=== PATIENT | male | born 1980 | race Caucasian/White ===

== ENCOUNTER 2024-09-27 15:48 | Inpatient (IN) | payer OTHER ==
[~2024-09-27] VITALS: Ht 175.3 cm; Wt 99.8 kg
[2024-09-27] MEDS ORDERED: LOPERAMIDE HCL 2MG CAPSULE PO ONE (16:30)
[2024-09-27 16:40] LABS: BASOPHILS % 0.1 % (0.0-2.0); EOSINOPHILS % 0.1 % (0.0-5.0); HEMOGLOBIN. 14.3 g/dL (14.0-18.0); LYMPHOCYTES % 10.3 % (20.0-50.0); MEAN CORPUSCULAR HEMOGLOBIN 29.4 pg (28.0-32.0); MEAN CORPUSCULAR HGB CONC 33.3 g/dL (31.0-37.0); MEAN CORPUSCULAR VOLUME 88.2 fL (80.0-94.0); MEAN PLATELET VOLUME 9.3 fl (7.4-10.4); MONOCYTES % 6.9 % (2.0-8.0); NEUTROPHILS % 82.6 % (40.0-76.0); PLATELET 218 x1000/uL (130-400); RED BLOOD CELL COUNT 4.88 mill/uL (4.7-6.1); RED CELL DISTRIBUTION WIDTH 13.1 % (11.6-14.6); WHITE BLOOD COUNT 14.7 x1000/uL (4.5-11.0)
[2024-09-27 16:43] LABS: CHLORIDE 98 mEq/L (98-107); POTASSIUM 3.9 mEq/L (3.5-5.1); SODIUM 132 mEq/L (136-145)
[2024-09-27 16:44] LABS: CALCIUM 9.8 mg/dL (8.7-10.4); CARBON DIOXIDE 25 mEq/L (21-32)
[2024-09-27 16:46] LABS: PROTHROMBIN TIME 10.9 sec (9.6-11.0)
[2024-09-27 16:49] LABS: CREATININE 0.8 mg/dL (0.6-1.3); GLUCOSE 114 mg/dL (70-105); UREA NITROGEN BLOOD 8 mg/dL (9-23)
[2024-09-27 16:51] LABS: ALANINE AMINOTRANSFERASE 29 IU/L (10-49); ALBUMIN 4.5 g/dL (3.2-4.8); ASPARTATE AMINOTRANSFERASE 19 IU/L (<34)
[2024-09-27 16:52] LABS: BILIRUBIN DIRECT 0.6 mg/dL (<=3.0); BILIRUBIN TOTAL 1.8 mg/dL (0.1-1.0); PROTEIN TOTAL 8.2 g/dL (6.0-8.3)
[2024-09-27] MEDS: HYDROCODONE/ACETAMINOPHEN 5/325MG TABLET PO ONE (16:59)
[2024-09-27] MEDS: LOPERAMIDE HCL 2MG CAPSULE PO NR (16:59)
[2024-09-27] MEDS: CEFTRIAXONE 1GM/50ML 50 ML IV NR (18:41)
[2024-09-27] MEDS: SODIUM CHLORIDE 0.9% 1,000 ML IV ONE (19:17)
[2024-09-27] MEDS: METRONIDAZOLE 500 MG PREMIX 100 ML IV NR (20:58)
[2024-09-27 21:46] LABS: CLARITY URINE CLEAR (CLEAR); COLOR URINE DARK YELLOW (YELLOW); GLUCOSE URINE NEGATIVE (NEGATIVE); KETONES URINE 2+ (NEGATIVE); LEUKOCYTE ESTERASE URINE NEGATIVE (NEGATIVE); NITRITE URINE NEGATIVE (NEGATIVE); OCCULT BLOOD URINE NEGATIVE (NEGATIVE); PH URINE 6.5 (4.5-8.0); PROTEIN URINE NEGATIVE (NEGATIVE); SPECIFIC GRAVITY URINE 1.011 (1.005-1.030)
[2024-09-27 22:06] LABS: BACTERIA URINE NONE SEEN; RBC URINE NONE SEEN /hpf (0-2); SQUAMOUS EPITHELIAL CELL URINE RARE /lpf (RARE/1+); WBC URINE NONE SEEN /hpf (0-2)
[2024-09-27] MEDS ORDERED: DEXT 5%/LACTATED RINGERS 1,000 ML IV SCH (22:15)
[2024-09-27] MEDS ORDERED: ONDANSETRON HCL 4MG/2ML INJ IV PRN (22:15)
[2024-09-27] MEDS ORDERED: MORPHINE SULFATE 2 MG/ML INJ (NOT FOR IM USE) IV PRN (22:15)
[2024-09-27 22:29] LABS: PHOSPHORUS 3.1 mg/dL (2.5-4.9)
[2024-09-27] MEDS ORDERED: NALOXONE HCL 0.4MG/ML VIAL IV PRN (22:30)
[2024-09-27] MEDS ORDERED: DOCUSATE SODIUM 100MG CAPSULE PO PRN (22:30)
[2024-09-27] MEDS ORDERED: ACETAMINOPHEN 325MG TABLET PO PRN (22:30)
[2024-09-27] MEDS ORDERED: MAGNESIUM/ALUMINUM HYDROXIDE/SIMETHICONE 30ML UDC PO PRN (22:30)
[2024-09-27] MEDS ORDERED: CLONIDINE 0.1MG TABLET PO PRN (22:30)
[2024-09-27] MEDS ORDERED: IPRATROPIUM/ALBUTEROL 0.5-3(2.5)MG/3ML NEB HHN PRN (22:30)
[2024-09-27] MEDS ORDERED: GUAIFENESIN 200MG/10ML SUGAR FREE UDC PO PRN (22:30)
[2024-09-27] MEDS ORDERED: HYDROCODONE/ACETAMINOPHEN 5/325MG TABLET PO PRN (22:30)
[2024-09-27] MEDS ORDERED: BUPIVACAINE HCL/PF 0.5% (5MG/ML) 10ML ONE (23:18)
[2024-09-27] MEDS ORDERED: SKIN ADHESIVE 0.7 GM EA TOP ONE (23:34)
[2024-09-27] MEDS ORDERED: SUCCINYLCHOLINE CHLORIDE 200MG/10ML IV ONE (23:42)
[2024-09-27] MEDS ORDERED: HYDROMORPHONE HCL/PF 1MG/ML INJ ONE (23:42)
[2024-09-27] MEDS ORDERED: ROCURONIUM BROMIDE 10MG/ML VIAL 5ML IV ONE (23:42)
[2024-09-27] MEDS ORDERED: ETOMIDATE 2MG/ML 10ML VIAL IV ONE (23:42)
[2024-09-28] MEDS ORDERED: MORPHINE SULFATE 4 MG/ML INJ (FOR IV/IM USE) IV PRN
[2024-09-28] MEDS ORDERED: ONDANSETRON HCL 4MG/2ML INJ IV PRN
[2024-09-28] MEDS ORDERED: HYDROCODONE/ACETAMINOPHEN 5/325MG TABLET PO PRN
[2024-09-28] MEDS ORDERED: MORPHINE SULFATE 2 MG/ML INJ (NOT FOR IM USE) IV PRN
[2024-09-28] MEDS ORDERED: FENTANYL CITRATE/PF 50MCG/ML 5ML VIAL ONE (00:23)
[2024-09-28] MEDS ORDERED: ROCURONIUM BROMIDE 10MG/ML VIAL 5ML IV ONE (00:25)
[2024-09-28] MEDS ORDERED: SUGAMMADEX SODIUM 200MG/2ML VIAL IV ONE (00:56)
[2024-09-28] MEDS ORDERED: TAZOBACTAM IV SCH (02:00)
[2024-09-28] MEDS ORDERED: PIPERACILLIN IV SCH (02:00)
[2024-09-28 03:31] VITALS: BP 113/73; PULSE 86; RESP 18; TEMP 36.8
[2024-09-28] MEDS ORDERED: CEFTRIAXONE 2GM/50ML 50 ML IV SCH (06:00)
[2024-09-28] MEDS: METRONIDAZOLE 500 MG PREMIX 100 ML IV SCH (06:00)
[2024-09-28] MEDS: PIPERACILLIN/TAZO 3.375G/50ML IV SCH (06:01)
[2024-09-28] MEDS: SODIUM CHLORIDE 0.9% 3ML FLUSH IVF SCH (06:02)
[2024-09-28] MEDS: DEXT 5%/0.45% NACL KCL 20MEQ/L 1,000 ML IV SCH (06:15)
[2024-09-28 08:00] VITALS: BP 125/68; PULSE 93; RESP 19; TEMP 36.8; O2SAT 100
[2024-09-28 08:08] LABS: HEMATOCRIT. 40.9 % (42.0-52.0); HEMOGLOBIN. 13.8 g/dL (14.0-18.0); MEAN CORPUSCULAR HEMOGLOBIN 29.8 pg (28.0-32.0); MEAN CORPUSCULAR HGB CONC 33.7 g/dL (31.0-37.0); MEAN CORPUSCULAR VOLUME 88.7 fL (80.0-94.0); MEAN PLATELET VOLUME 9.4 fl (7.4-10.4); PLATELET 206 x1000/uL (130-400); RED BLOOD CELL COUNT 4.62 mill/uL (4.7-6.1); RED CELL DISTRIBUTION WIDTH 13.2 % (11.6-14.6); WHITE BLOOD COUNT 15.2 x1000/uL (4.5-11.0)
[2024-09-28 08:30] LABS: PARTIAL THROMBOPLASTIN TIME 28.6 sec (23.4-31.0); PROTHROMBIN TIME 10.8 sec (9.6-11.0)
[2024-09-28 08:36] LABS: DIFFERENTIAL COMMENT 1
[2024-09-28] MEDS: PANTOPRAZOLE SODIUM 40 MG/VIAL IV SCH (08:52)
[2024-09-28] MEDS: ENOXAPARIN 40MG/0.4ML SYR SUBCUT SCH (08:54)
[2024-09-28 09:17] LABS: CHLORIDE 102 mEq/L (98-107); POTASSIUM 4.3 mEq/L (3.5-5.1); SODIUM 135 mEq/L (136-145)
[2024-09-28 09:18] LABS: CALCIUM 9.2 mg/dL (8.7-10.4); CARBON DIOXIDE 25 mEq/L (21-32)
[2024-09-28 09:23] LABS: CREATININE 0.8 mg/dL (0.6-1.3); GLUCOSE 127 mg/dL (70-105); UREA NITROGEN BLOOD 9 mg/dL (9-23)
[2024-09-28 09:25] LABS: ALANINE AMINOTRANSFERASE 31 IU/L (10-49); ALBUMIN 4.1 g/dL (3.2-4.8); ASPARTATE AMINOTRANSFERASE 28 IU/L (<34); BILIRUBIN DIRECT 0.8 mg/dL (<=3.0); CREATINE KINASE 412 IU/L (46-171)
[2024-09-28 09:26] LABS: BILIRUBIN TOTAL 1.9 mg/dL (0.1-1.0); PROTEIN TOTAL 7.6 g/dL (6.0-8.3); THYROID STIMULATING HORMONE 1.12 uIU/mL (0.55-4.78)
[2024-09-28 12:00] VITALS: BP 125/72; PULSE 96; RESP 19; TEMP 37.2; O2SAT 98
[2024-09-28] MEDS: ACETAMINOPHEN 325MG TABLET PO PRN (13:26)
[2024-09-28 15:02] LABS: PLATELET ESTIMATE NORMAL
[2024-09-28 16:00] VITALS: BP 104/63; PULSE 86; RESP 19; TEMP 36.8; O2SAT 99
[2024-09-28 16:56] LABS: HEMATOCRIT 36.2 % (42.0-52.0); HEMOGLOBIN 12.2 g/dL (14.0-18.0)
[2024-09-28 17:12] LABS: CREATINE KINASE 368 IU/L (46-171)
[2024-09-28 20:00] VITALS: BP 111/66; PULSE 94; RESP 17; TEMP 36.5; O2SAT 96
[2024-09-28] MEDS: HYDROCODONE/ACETAMINOPHEN 5/325MG TABLET PO PRN (20:09)
[2024-09-28 22:31] VITALS: BP 111/66; PULSE 94; RESP 17; TEMP 36.5; O2SAT 96
[2024-09-29 04:00] VITALS: BP 114/70; PULSE 82; RESP 18; TEMP 36.6; O2SAT 98
[2024-09-29 07:10] LABS: BASOPHILS % 0.3 % (0.0-2.0); EOSINOPHILS % 0.5 % (0.0-5.0); HEMOGLOBIN. 12.4 g/dL (14.0-18.0); LYMPHOCYTES % 16.3 % (20.0-50.0); MEAN CORPUSCULAR HEMOGLOBIN 29.5 pg (28.0-32.0); MEAN CORPUSCULAR HGB CONC 33.5 g/dL (31.0-37.0); MEAN CORPUSCULAR VOLUME 88.2 fL (80.0-94.0); MEAN PLATELET VOLUME 9.3 fl (7.4-10.4); MONOCYTES % 7.2 % (2.0-8.0); NEUTROPHILS % 75.7 % (40.0-76.0); PLATELET 197 x1000/uL (130-400); RED CELL DISTRIBUTION WIDTH 13.3 % (11.6-14.6); WHITE BLOOD COUNT 8.2 x1000/uL (4.5-11.0)
[2024-09-29 07:19] LABS: CHLORIDE 103 mEq/L (98-107); POTASSIUM 3.9 mEq/L (3.5-5.1); SODIUM 135 mEq/L (136-145)
[2024-09-29 07:20] LABS: CALCIUM 8.9 mg/dL (8.7-10.4); CARBON DIOXIDE 25 mEq/L (21-32)
[2024-09-29 07:25] LABS: CREATININE 0.8 mg/dL (0.6-1.3); GLUCOSE 100 mg/dL (70-105); UREA NITROGEN BLOOD 8 mg/dL (9-23)
[2024-09-29 07:27] LABS: PHOSPHORUS 1.9 mg/dL (2.5-4.9)
[2024-09-29 08:00] VITALS: BP 124/78; PULSE 87; RESP 20; TEMP 36.6; O2SAT 97
[2024-09-29] MEDS: SODIUM PHOSPHATE 30 MMOL in DEXT 5% WATER 490 ML IV NR (10:34)
[2024-09-29 12:00] VITALS: BP 116/77; PULSE 81; RESP 18; TEMP 36.8; O2SAT 99
[2024-09-29 16:00] VITALS: BP 134/85; PULSE 86; RESP 20; TEMP 36.6; O2SAT 100
[2024-09-29 20:00] VITALS: BP 121/78; PULSE 89; RESP 18; TEMP 37.1; O2SAT 98
[2024-09-29 20:11] VITALS: BP 124/75; PULSE 88; RESP 16; TEMP 37.9; O2SAT 92
[2024-09-30] VITALS: BP 130/81; PULSE 80; RESP 17; TEMP 36.1; O2SAT 98
[2024-09-30 04:00] VITALS: BP 124/86; PULSE 73; RESP 18; TEMP 36.7; O2SAT 100
[2024-09-30] MEDS: PANTOPRAZOLE 40MG DR TABLET PO SCH (06:01)
[2024-09-30 08:00] VITALS: BP 117/72; PULSE 81; RESP 19; TEMP 36.6; O2SAT 95
[2024-09-30 08:21] LABS: BASOPHILS % 0.2 % (0.0-2.0); EOSINOPHILS % 1.9 % (0.0-5.0); HEMATOCRIT. 37.5 % (42.0-52.0); HEMOGLOBIN. 12.9 g/dL (14.0-18.0); LYMPHOCYTES % 13.5 % (20.0-50.0); MEAN CORPUSCULAR HEMOGLOBIN 30.2 pg (28.0-32.0); MEAN CORPUSCULAR HGB CONC 34.5 g/dL (31.0-37.0); MEAN CORPUSCULAR VOLUME 87.8 fL (80.0-94.0); MEAN PLATELET VOLUME 9.4 fl (7.4-10.4); MONOCYTES % 7.6 % (2.0-8.0); NEUTROPHILS % 76.8 % (40.0-76.0); PLATELET 220 x1000/uL (130-400); RED BLOOD CELL COUNT 4.28 mill/uL (4.7-6.1); RED CELL DISTRIBUTION WIDTH 13.1 % (11.6-14.6); WHITE BLOOD COUNT 6.8 x1000/uL (4.5-11.0)
[2024-09-30 08:41] LABS: CALCIUM 9.2 mg/dL (8.7-10.4); CHLORIDE 104 mEq/L (98-107); SODIUM 136 mEq/L (136-145)
[2024-09-30 08:42] LABS: CARBON DIOXIDE 27 mEq/L (21-32)
[2024-09-30 08:47] LABS: CREATININE 0.6 mg/dL (0.6-1.3); GLUCOSE 105 mg/dL (70-105); UREA NITROGEN BLOOD 7 mg/dL (9-23)
[2024-09-30 08:49] LABS: PHOSPHORUS 2.9 mg/dL (2.5-4.9)
[2024-09-30 12:25] VITALS: BP 126/81; PULSE 80; RESP 20; TEMP 36.7; O2SAT 100
[2024-09-30 16:00] VITALS: BP 127/82; PULSE 95; RESP 20; TEMP 36.4; O2SAT 98
[2024-09-30] MEDS ORDERED: CIPR-263 PO (16:21)
[2024-09-30] MEDS ORDERED: METR-167 PO (16:21)
[2024-09-30 16:50] VITALS: BP 128/85; PULSE 82; TEMP 98.5; O2SAT 98
== END 2024-09-30 17:34 | disposition home or self-care (01) | DRG 853 ==
LOC: ER 15:48 → EDBEDREQTM 22:14 → EDBEDREQ 22:14 → 7EST 22:40
PROVIDERS: ADMIT Internal Medicine; ATTEND Internal Medicine
PROC: 0DTJ4ZZ Resection of Appendix, Percutaneous Endoscopic Approach (ICD-10-PCS; principal; 2024-09-28)
DX: A41.9 Sepsis, unspecified organism (principal); K35.32 Acute appendicitis with perforation, localized peritonitis, and gangrene, without abscess; E87.1 Hypo-osmolality and hyponatremia; E66.9 Obesity, unspecified; K76.0 Fatty (change of) liver, not elsewhere classified; Z79.899 Other long term (current) drug therapy; Z68.32 Body mass index [BMI] 32.0-32.9, adult
CPT/HCPCS: 36415; 71045; 74176; 80048; 80061; 80076; 81003; 82550; 83605; 83735; 84100; 84145; 84443; 85014; 85018; 85025; 86850; 86900; 88304; 99285; J0330; J0665; J0696; J1171; J1650; J2470; J2543; J3010; J3490; J7030; J7060